=== PATIENT | female | born 1985 | race Caucasian/White ===

== ENCOUNTER 2021-06-05 18:03 | Emergency (ER) | payer MEDICAID, SELFPAY ==
--- NOTE | ~2021-06-05 | US_ITS ---
EXAMINATION: US VENOUS ULTRASOUND WITH DOPPLER LOWER EXTREMITY, LEFT CLINICAL INFORMATION: Pain COMPARISON: None TECHNIQUE: Ultrasound of the deep veins is performed from the hip to the calf with compression sonography and color and pulse Doppler assessment. Spectral analysis with color-flow imaging is performed. FINDINGS: There is normal venous compression and respiratory variation and augmented flow. The visualized common femoral vein, superficial femoral vein, profunda femoral vein, popliteal vein, and the trifurcation region shows no evidence of deep venous thrombosis. There is no significant popliteal fossa cyst. If the patient's symptoms persist, followup ultrasound in 5 days 7 days might be of value to exclude proximal propagation from a non-visualized calf vein. US/US venous duplex LE LT IMPRESSION: No DVT demonstrated in the left lower extremity.
--- NOTE | ~2021-06-05 | XR_ITS ---
EXAMINATION: XR CHEST CLINICAL INFORMATION: Cough. Mucous. COMPARISON: None TECHNIQUE: Frontal view of the chest was obtained. 8:33 PM FINDINGS: No significant abnormality is noted involving the heart, lungs, mediastinum, bony thorax or soft tissues. XR/XR chest 1V IMPRESSION: Unremarkable examination.
[2021-06-05 20:07] VITALS: BP 140/51; PULSE 70; RESP 16; TEMP 36.6; O2SAT 96; BMI 33.0
--- NOTE | 2021-06-05 20:21 | ED.GENADULT ---
HPI - General Adult General Chief complaint: General Medical Stated complaint: cough Time Seen by Provider: 06/05/21 19:48 Source: patient Mode of arrival: ambulatory Limitations: no limitations History of Present Illness HPI narrative: 35-year-old female with no primary care provider presents for 1 month of a cough. Cough is dry. No fevers, no sore throat, no runny nose, no chest pain. Patient also has had swelling in her bilateral feet, and redness and warmth on her left lower legs that she attributes to mosquito bites. States her left lower leg has been swollen and warm for the last 2 weeks. Patient has tried to establish with a primary care provider but reports that appointments keep getting canceled so she has given up. She does have a history of depression and has a psychiatrist who prescribes psych meds. Related Data Allergies Allergy/AdvReac Type Severity Reaction Status Date / Time prednisone [Prednisone] AdvReac Mild NAUSEA AND Unverified 06/05/20 16:52 VOMITING Review of Systems Review of Systems: Constitutional : No Weight loss, No Fever, No Chills, No Night Sweats,No Fatigue, No Malaise ENT/Mouth : No Hearing loss, No Ear Pain, No Nasal Congestion, NoSinus Pain, No Hoarseness, No sore throat, No Rhinorrhea, NoSwallowing Difficulty Eyes: No Eye Pain, No Swelling, No Redness, No Foreign Body, NoDischarge, No Vision Changes Cardiovascular : No Chest Pain, No SOB, No Dyspnea on Exertion, NoOrthopnea, No Edema, No Palpitations Respiratory :Dry Cough, No Sputum, No Wheezing, No Dyspnea Gastrointestinal : No Nausea, No Vomiting, No Diarrhea, NoConstipation, No abdominal Pain, No Hematochezia, No Melena Genitourinary : no irregular bleeding, No Dysuria, No UrinaryFrequency, No Hematuria, No Urinary Incontinence, No Urgency, No FlankPain, No Urinary Flow Changes, No Hesitancy Musculoskeletal : No joint pain, No Myalgias, No Joint Swelling Skin : left calf redness and swelling Neuro : No Weakness, No Numbness, No Paresthesias, No Loss ofConsciousness, No Dizziness, No Headache Psych : mild anxiety PMFSH Social History Social History Advance Directives: No Advance Directives Information Provided: No Patient : No Physical Exam Vital Signs: Vital Signs: Last Vital Signs Temp 97.9 F 06/05/21 20:07 Pulse 70 06/05/21 20:07 Resp 16 06/05/21 20:07 BP 140/51 H 06/05/21 20:07 Pulse Ox 96 06/05/21 20:07 Body Mass Index 33.0 Const: General: cooperative, no acute distress, well developed, alert and awake Nutritional Appearance: well nourished Orientation/consciousness: patient oriented x3 Limitations: no limitations HENMT: Head: Yes normal to inspection, Yes normocephalic and Yes atraumatic Ears: hearing grossly normal bilaterally, external ears normal, TM's normal bilaterally and EAC's normal General nose exam: Normal external nose present Face and sinus: Yes normal facial exam and Yes sinuses nontender Mouth: Normal oral and palatal mucosa present Throat: Yes posterior oropharynx normal Eyes: Conjunctivae: conjunctivae normal Pupils: Equal, round and reactive pupils present EOM: EOMs intact bilaterally Neck: Neck: Yes full ROM, Yes no lymphadenopathy and Yes supple Resp: Effort & Inspection: normal respiratory effort and able to speak in complete sentences Auscultation: crackles diffuse, no rales, rhonchi throughout and no wheezes Cardio: Rate: regular rate Rhythm: regular rhythm Heart sounds: S1 normal heart sound present and S2 normal heart sound present GI: Inspection: Yes normal to inspection Palpation (GI): Soft to palpation, nontender, no guarding and not rigid Percussion: Yes normal to percussion Auscultation: normal bowel sounds Skin: Other: Red swollen warm left medial distal calf. Mosquito bites or other bug bites on bilateral calf. Neuro: General: patient oriented x3, tone normal and moves all extremities Cranial nerves: Yes Equal, round and reactive pupils present Extrem: Other: Bilateral extremities have +1 pitting edema, left calf is mildly larger in circumference than right. General: Yes full ROM and Yes capillary refill normal Psych: Appearance: grossly normal Affect: normal affect Attitude: cooperative Thought process: Normal thought process present Course Course Course Narrative: 35-year-old female with 1 month of a dry cough and swelling in her feet, complaining of redness and warmth in her left lower extremity. On exam, patient is rhonchorous with crackles throughout her lung oliveira. Left lower extremity has redness and warmth on the medial aspect of her distal calf. Both lower extremities have mild edema and multiple insect bites. Patient's abdomen is soft nontender. Will give albuterol, test for COVID. Will get chest x-ray, ultrasound left lower extremity. Will get coags and blood work. If patient does not have DVT, will send home with doxycycline as that will treat both cellulitis and the pneumonia if her chest x-ray shows pneumonia. Reevaluation(s) Reevaluation #1: Chest x-ray is negative, patient is COVID negative. CBC and CMP are unremarkable. Coags normal. Signed pt out to Eneida Fatima, pending results of US of left LE. Medical Decision Making Lab Data Result diagrams: 06/05/21 20:36 06/05/21 20:36 Labs: Lab Results 06/05/21 06/05/21 06/05/21 Range/Units 20:31 20:36 20:36 WBC 7.1 (4.8-10.8) X10*3/uL RBC 4.40 (4.20-5.50) X10*6/uL Hgb 12.0 (12.0-16.0) g/dl Hct 35.8 L (37-47) % MCV 81.4 (80-98) fL MCH 27.3 (27.0-33.0) pg MCHC 33.5 (31.0-35.0) g/dl RDW 13.2 (11.0-16.0) % Plt Count 265 (160-400) X10*3/uL MPV 10.0 (9.4-12.3) fL Immature Gran % (Auto) 0.1 (0.0-0.4) % Neut % (Auto) 53.4 (45-73) % Lymph % (Auto) 37.1 (20-40) % Grainger % (Auto) 6.2 (2-11) % Eos % (Auto) 3.1 (0-4) % Baso % (Auto) 0.1 (0-2) % Lymph # (Auto) 2.7 (1.2-4.9) X10*3/uL Grainger # (Auto) 0.4 (0.1-1.2) X10*3/uL Eos # (Auto) 0.2 (0.0-0.4) X10*3/uL Baso # (Auto) 0.0 (0.0-0.2) X10*3/uL Abs Immat Gran (auto) 0.01 (0.00-0.03) X10*3/uL Absolute Neuts (auto) 3.8 (2.0-8.3) X10*3/uL Absolute Nucleated RBC 0.000 (0.0-0.012) X10*3/uL Nucleated RBC % (auto) 0.0 (0.0-0.2) /100WBC PT 12.1 (9.9-13.0) SEC INR 1.1 (0.9-1.1) APTT 37.0 (24.1-38.0) SEC Sodium (135-145) mmol/L Potassium (3.3-5.1) mmol/L Chloride (96-108) mmol/L Carbon Dioxide (22-29) mmol/L Anion Gap (12-20) BUN (9-16) mg/dL Creatinine (0.5-1.4) mg/dL Estim Creat Clear Calc Estimated GFR Random Glucose (60-115) mg/dL Calcium (8.4-10.2) mg/dL Total Bilirubin (0.0-1.0) mg/dL AST (5-31) U/L ALT (0-31) U/L Alkaline Phosphatase (39-117) U/L Total Protein (6.5-8.0) g/dL Albumin (3.5-5.0) g/dL COVID-19 (SUSAN) Negative (Negative) COVID-19 Clin Com See Note 06/05/21 Range/Units 20:36 WBC (4.8-10.8) X10*3/uL RBC (4.20-5.50) X10*6/uL Hgb (12.0-16.0) g/dl Hct (37-47) % MCV (80-98) fL MCH (27.0-33.0) pg MCHC (31.0-35.0) g/dl RDW (11.0-16.0) % Plt Count (160-400) X10*3/uL MPV (9.4-12.3) fL Immature Gran % (Auto) (0.0-0.4) % Neut % (Auto) (45-73) % Lymph % (Auto) (20-40) % Grainger % (Auto) (2-11) % Eos % (Auto) (0-4) % Baso % (Auto) (0-2) % Lymph # (Auto) (1.2-4.9) X10*3/uL Grainger # (Auto) (0.1-1.2) X10*3/uL Eos # (Auto) (0.0-0.4) X10*3/uL Baso # (Auto) (0.0-0.2) X10*3/uL Abs Immat Gran (auto) (0.00-0.03) X10*3/uL Absolute Neuts (auto) (2.0-8.3) X10*3/uL Absolute Nucleated RBC (0.0-0.012) X10*3/uL Nucleated RBC % (auto) (0.0-0.2) /100WBC PT (9.9-13.0) SEC INR (0.9-1.1) APTT (24.1-38.0) SEC Sodium 138 (135-145) mmol/L Potassium 3.9 (3.3-5.1) mmol/L Chloride 103 (96-108) mmol/L Carbon Dioxide 27 (22-29) mmol/L Anion Gap 12 (12-20) BUN 14 (9-16) mg/dL Creatinine 0.83 (0.5-1.4) mg/dL Estim Creat Clear Calc 92.0 Estimated GFR > 60 Random Glucose 85 (60-115) mg/dL Calcium 9.4 (8.4-10.2) mg/dL Total Bilirubin 0.5 (0.0-1.0) mg/dL AST 8 (5-31) U/L ALT 11 (0-31) U/L Alkaline Phosphatase 115 (39-117) U/L Total Protein 6.7 (6.5-8.0) g/dL Albumin 4.1 (3.5-5.0) g/dL COVID-19 (SUSAN) (Negative) COVID-19 Clin Com Discharge Plan Discharge Clinical Impression: Cellulitis Qualifiers: Site of cellulitis: extremity Site of cellulitis of extremity: lower extremity Laterality: left Qualified Code(s): L03.116 - Cellulitis of left lower limb
[2021-06-05 20:46] LABS: Basophils Percent Auto 0.1 % (0-2); Eosinophils Absolute Auto 0.2 X10*3/uL (0.0-0.4); Eosinophils Percent Auto 3.1 % (0-4); Hematocrit 35.8 % (37-47); Imm Gran Abs Auto 0.01 X10*3/uL (0.00-0.03); Imm Gran Pct Auto 0.1 % (0.0-0.4); Lymphocytes Absolute Auto 2.7 X10*3/uL (1.2-4.9); Lymphocytes Percent Auto 37.1 % (20-40); MANUAL DIFF FLAG NO; Mean Corpuscular HGB Conc 33.5 g/dl (31.0-35.0); Mean Corpuscular Hemoglobin 27.3 pg (27.0-33.0); Mean Corpuscular Volume 81.4 fL (80-98); Monocytes Absolute Auto 0.4 X10*3/uL (0.1-1.2); Monocytes Percent Auto 6.2 % (2-11); Neutrophils Absolute Auto 3.8 X10*3/uL (2.0-8.3); Neutrophils Percent Auto 53.4 % (45-73); Platelet Count 265 X10*3/uL (160-400); Red Cell Distribution Width 13.2 % (11.0-16.0); White Blood Count 7.1 X10*3/uL (4.8-10.8)
[2021-06-05 20:52] LABS: INTERNATIONAL NORM RATIO 1.1 (0.9-1.1); Prothrombin Time 12.1 SEC (9.9-13.0)
[2021-06-05 20:58] LABS: COVID-19 Test Negative (Negative)
[2021-06-05 21:03] LABS: Alanine Aminotransferase 11 U/L (0-31); Albumin Level 4.1 g/dL (3.5-5.0); Alkaline Phosphatase 115 U/L (39-117); Anion Gap 12 (12-20); Aspartate Amino Transferase 8 U/L (5-31); Bilirubin Total 0.5 mg/dL (0.0-1.0); Blood Urea Nitrogen 14 mg/dL (9-16); Calcium 9.4 mg/dL (8.4-10.2); Carbon Dioxide 27 mmol/L (22-29); Chloride 103 mmol/L (96-108); Estimated Glomerular Filt Rate > 60; Glucose Random 85 mg/dL (60-115); Potassium 3.9 mmol/L (3.3-5.1); Sodium 138 mmol/L (135-145); Total Protein 6.7 g/dL (6.5-8.0)
[2021-06-05] MEDS: Albuterol Sulfate 90 MCG 8 GM INHALER 2 PUFF INHALE (21:38)
[2021-06-08 17:22] LABS: Lyme Abs Screen <0.90 index
== END 2021-06-05 22:34 | disposition home or self-care (01) ==
PROVIDERS: Physician Assistant; Emergency Provider Emergency Medicine
DX: L03.116 Cellulitis of left lower limb (principal); R05 Cough; R60.0 Localized edema; Z20.822 Contact with and (suspected) exposure to COVID-19; Z79.899 Other long term (current) drug therapy
CPT/HCPCS: 36415; 71045; 80053; 85025; 85610; 85730; 86617; 86618; 87635; 93971; 99283; 99284

== ENCOUNTER 2021-11-05 12:32 | Emergency (ER) | payer MEDICAID, SELFPAY ==
[2021-11-05] VITALS (9 sets, daily range): BP systolic 73–114; BP diastolic 30–61; PULSE 41–61; RESP 16–18; TEMP 36.6; O2SAT 97–98
[2021-11-05 13:18] LABS: MANUAL DIFF FLAG NO
[2021-11-05 13:20] LABS: Basophils Percent Auto 0.4 % (0-2); Eosinophils Absolute Auto 0.4 X10*3/uL (0.0-0.4); Eosinophils Percent Auto 6.1 % (0-4); Hematocrit 39.7 % (37.0-47.0); Hemoglobin 12.8 g/dl (12.0-16.0); Imm Gran Abs Auto 0.01 X10*3/uL (0.00-0.03); Imm Gran Pct Auto 0.1 % (0.0-0.4); Lymphocytes Absolute Auto 2.7 X10*3/uL (1.2-4.9); Lymphocytes Percent Auto 38.2 % (20-40); Mean Corpuscular HGB Conc 32.2 g/dl (31.0-35.0); Mean Corpuscular Hemoglobin 27.2 pg (27.0-33.0); Mean Corpuscular Volume 84.5 fL (80.0-98.0); Mean Platelet Volume 10.7 fL (9.4-12.3); Monocytes Absolute Auto 0.4 X10*3/uL (0.1-1.2); Monocytes Percent Auto 5.2 % (2-11); Neutrophils Absolute Auto 3.5 x10*3/uL (2.0-8.3); Platelet Count 236 X10*3/uL (160-400); Red Cell Distribution Width 15.4 % (11.0-16.0); White Blood Count 7.1 X10*3/uL (4.8-10.8)
[2021-11-05 13:32] LABS: Anion Gap 13 (12-20); Blood Urea Nitrogen 14 mg/dL (9-16); Calcium 9.5 mg/dL (8.4-10.2); Carbon Dioxide 25 mmol/L (22-29); Chloride 102 mmol/L (96-108); Estimated Glomerular Filt Rate 46; Glucose Random 133 mg/dL (60-115); Potassium 5.1 mmol/L (3.3-5.1); Sodium 135 mmol/L (135-145)
[2021-11-05 13:39] LABS: HCG Quantitative < 2 mIU/mL
--- NOTE | 2021-11-05 15:00 | ED.GENADULT ---
HPI - General Adult General Chief complaint: General Medical Stated complaint: Dizzy Time Seen by Provider: 11/05/21 14:59 Source: patient Mode of arrival: ambulatory Limitations: no limitations History of Present Illness HPI narrative: 36-year-old female no significant medical history presents to the emergency department with dizziness x1 week and requesting an STD check. Patient tells me that dizziness has been intermittent in nature, worse with positional changes, she tells me it is very bad when she sits up quickly. She describes it as feeling like the room is spinning and like she is underwater. She tells she would like to get tested for gonorrhea and chlamydia as her significant other who she is currently sexually active with without protection tested positive for both of these. She would like prophylaxis treatment. She tells me she is having no symptoms. She denies chest pain, shortness of breath, fevers, chills, nausea, vomiting, urinary frequency/urgency, dysuria, vaginal discharge, pain with intercourse, vision changes, trauma to the head, headache Onset (ago): week(s) (1) Radiation: non-radiation Severity: moderate Pain Consistency: constant Relieving factors: none Exacerbating factors: none Associated symptoms: denies other symptoms Treatments prior to arrival: none Related Data Previous Rx's Medication Instructions Recorded albuterol sulfate 90 mcg/actuation 1 inh INHALATION QID PRN #6.7 g 06/05/21 aerosol inhaler cephalexin 750 mg capsule (Keflex) 750 mg PO Q12H #20 cap 06/05/21 sulfamethoxazole 800 1 tab PO Q12H #14 tab 06/05/21 mg-trimethoprim 160 mg tablet (Bactrim DS) cephalexin 500 mg capsule 500 mg PO BID #14 cap 06/07/21 doxycycline hyclate 100 mg capsule 100 mg PO BID 7 Days #14 cap 11/05/21 meclizine 25 mg tablet 25 mg PO DAILY PRN #14 tab 11/05/21 metronidazole 500 mg tablet 500 mg PO BID 7 Days #14 tab 11/05/21 Allergies Allergy/AdvReac Type Severity Reaction Status Date / Time prednisone [Prednisone] AdvReac Mild NAUSEA AND Unverified 06/05/20 16:52 VOMITING Review of Systems Review of Systems: Constitutional : No Weight loss, No Fever, No Chills, No Fatigue, No Malaise ENT/Mouth : No sore throat, No Rhinorrhea Eyes: No Eye Pain, No Swelling, No Redness Cardiovascular : No Chest Pain, No SOB, No Dyspnea on Exertion, No Orthopnea, No Edema, No Palpitations Respiratory : No Cough, No Sputum, No Wheezing Gastrointestinal : No Nausea, No Vomiting, No Diarrhea, No Constipation, No abdominal Pain, No Hematochezia, No Melena Genitourinary : No Dysuria, No Urinary Frequency, No Hematuria, Musculoskeletal : No joint pain, No Myalgias, No Joint Swelling Skin : No Skin Lesions, No rash Neuro : No Weakness, No Numbness, + Dizziness, No Headache All other systems reviewed and are negative Yes all other systems are reviewed and are negative [facility] Past Medical History Attestation statement: The following information was validated with the patient. Source: old records reviewed and nursing notes reviewed Medical History Anxiety Kidney calculi Migraine Social History Social History Patient Tobacco Use Status: Never used Tobacco Use of substances other than those prescribed or required for medical reasons: Yes Substance Use Type: Marijuana Substance Use Frequency: Occasionally Advance Directives: No Advance Directives Information Provided: Yes Physical Exam ED Vital Signs: Vital Signs - 24 hr 11/05/21 12:53 11/05/21 14:34 11/05/21 15:33 Temperature 97.9 F Pulse Rate 54 50 42 L Respiratory Rate 16 18 Blood Pressure 73/36 L 93/42 L 110/30 L Pulse Oximetry 98 97 11/05/21 15:34 11/05/21 15:36 11/05/21 18:22 Temperature Pulse Rate 41 L 61 41 L Respiratory Rate Blood Pressure 109/50 L 85/45 L 114/56 L Pulse Oximetry 11/05/21 18:23 11/05/21 18:25 Temperature Pulse Rate 42 L 42 L Respiratory Rate Blood Pressure 89/38 L 112/61 Pulse Oximetry BMI result Body Mass Index 0.0 Patient noted to be hypotensive. Orthostatic vital signs positive. Appearance: Alert.? Oriented X3.? No acute distress.? Head: Normocephalic, atraumatic, no step-offs or deformities Eyes: Pupils equal, round and reactive to light.? No nystagmus. ENT: Pharynx normal.? Neck: Normal inspection.? Neck supple.? No meningeal signs negative Kernig and Brudzinski CVS: Normal heart rate and rhythm.? Pulses normal.? Respiratory: No respiratory distress.? Breath sounds normal.? Abdomen: Soft and nontender.? Skin: Skin warm and dry.? Normal skin color.? Normal skin turgor.? Extremities: No lower extremity edema.? No calf ttp. 5/5 strength to bilateral upper and lower extremities Back: No midline tenderness, no C-spine tenderness, full range of motion, no CVA tenderness bilaterally Neuro: Oriented X 3.? No motor deficit.? No sensory deficit. Normal [id number], [id number], normal tandem gait. Course Reevaluation(s) Reevaluation #1: CBC within normal limits. No acute electrolyte abnormalities. COVID negative. Beta hCG negative. UA without infection. Patient's tox screen positive for opiates, fentanyl, benzodiazepines, cocaine, marijuana. Patient denies drug use to me. Offered her help/rehab tells me she would not like any. Time: 16:16 Reevaluation #2: Was reported to me by the nurse the patient appears like she is dozing off. It appears as though patient is positive for opiates, fentanyl, cocaine and marijuana. Patient tells me she did not take any of these. She tells me she probably tested positive for benzodiazepines since she takes these prescribed, she tells me she is not abusing them. Patient is telling me that she really wants to get out here, she tells me she had Hast ago. I explained to her that I think she would benefit from a few L of fluid, and monitoring to ensure she does not feel worse. I also told her that if she does not improve with fluids we may order a CT scan of the head, she tells me that she does not want this, and she wants to leave. I told her that that is okay if she leaves however, it would be against medical advice I went over all the risks with her including , decreased quality of life, worsening symptoms, rapid disease progression and she tells me she does not care and she needs to leave. Time: 17:29 Reevaluation #3: Patient is still feeling well, heart rate remains low. Patient is telling me despite all the risks of leaving such as decreased quality of life, progression of disease course patient would like to leave. I made it very clear to her that this can be dangerous in life-threatening. Patient wants to leave she wants to smoke and she wants to get out of here. I have advised patient she can return at any time. Tells me she will follow up with PCP. Time: 18:31 Medical Decision Making [facility] [place] Narrative Medical decision making narrative: 1520 36 yo f no pmhx presents with vertigo like sx and std check, requesting prophylaxis treatment Physical examination benign. Patient's history and physical exam consistent with orthostatic hypotension and vertigo. Unlikely that this is a posterior stroke, cerebellar function intact. No meningeal signs. Plan at this time is to obtain basic labs, EKG, chlamydia, gonorrhea, cardiac monitoring. Patient will be prophylactically treated with Rocephin 500 mg IM once and doxycycline p.o. b.i.d. x7 days as well as metronidazole 500 mg p.o. b.i.d. x7 days to cover for Trichomonas and bacterial vaginosis. Patient also be hydrated with fluids and will be given meclizine, orthostatic vital signs were positive initially they will be repeated at a later time. Medical Records Medical records reviewed: Yes I reviewed the patient's medical records. Lab Data Lab results reviewed: Yes I reviewed the patient's lab results. Result diagrams: 11/05/21 13:12 11/05/21 13:12 Labs: Lab Results 11/05/21 11/05/21 11/05/21 Range/Units 13:12 13:12 13:12 WBC 7.1 (4.8-10.8) X10*3/uL RBC 4.70 (4.20-5.50) X10*6/uL Hgb 12.8 (12.0-16.0) g/dl Hct 39.7 (37.0-47.0) % MCV 84.5 (80.0-98.0) fL MCH 27.2 (27.0-33.0) pg MCHC 32.2 (31.0-35.0) g/dl RDW 15.4 (11.0-16.0) % Plt Count 236 (160-400) X10*3/uL MPV 10.7 (9.4-12.3) fL Immature Gran % (Auto) 0.1 (0.0-0.4) % Neut % (Auto) 50.0 (45-73) % Lymph % (Auto) 38.2 (20-40) % [place] % (Auto) 5.2 (2-11) % Eos % (Auto) 6.1 H (0-4) % Baso % (Auto) 0.4 (0-2) % Lymph # (Auto) 2.7 (1.2-4.9) X10*3/uL [place] # (Auto) 0.4 (0.1-1.2) X10*3/uL Eos # (Auto) 0.4 (0.0-0.4) X10*3/uL Baso # (Auto) 0.0 (0.0-0.2) X10*3/uL Abs Immat Gran (auto) 0.01 (0.00-0.03) X10*3/uL Absolute Neuts (auto) 3.5 (2.0-8.3) x10*3/uL Absolute Nucleated RBC 0.000 (0.0-0.012) X10*3/uL Nucleated RBC % (auto) 0.0 (0.0-0.2) /100WBC Sodium 135 (135-145) mmol/L Potassium 5.1 D (3.3-5.1) mmol/L Chloride 102 (96-108) mmol/L Carbon Dioxide 25 (22-29) mmol/L Anion Gap 13 (12-20) BUN 14 (9-16) mg/dL Creatinine 1.33 (0.5-1.4) mg/dL Estim Creat Clear Calc TNP Estimated GFR 46 Random Glucose 133 H (60-115) mg/dL Calcium 9.5 (8.4-10.2) mg/dL Beta HCG, Quant < 2 mIU/mL Urine Color Urine Appearance Urine pH (5.0-8.0) Ur Specific Valdez (1.005-1.025) Urine Protein (NEG-TRACE) MG/DL Urine Glucose (UA) (NEG) MG/DL Urine Ketones (NEG) MG/DL Urine Blood (NEG) Urine Nitrite (NEG) Ur Leukocyte Esterase (NEG) Urine RBC (0) /HPF Urine WBC (0-4) /HPF Ur Squamous Epith Cells /LPF Urine Bacteria /LPF Urine Opiates Screen (Not Detect) Urine Fentanyl Screen (Not Detect) Ur Barbiturates Screen (Not Detect) Ur Phencyclidine Scrn (Not Detect) Ur Amphetamines Screen (Not Detect) U Benzodiazepines Scrn (Not Detect) Urine Cocaine Screen (Not Detect) U Marijuana (THC) Screen (Not Detect) Chlam trachomat DNA PCR Cancelled COVID-19 (SUSAN) (Negative) COVID-19 Clin Com N.gonorrhoeae DNA (PCR) Cancelled 11/05/21 11/05/21 11/05/21 Range/Units 15:43 15:43 15:43 WBC (4.8-10.8) X10*3/uL RBC (4.20-5.50) X10*6/uL Hgb (12.0-16.0) g/dl Hct (37.0-47.0) % MCV (80.0-98.0) fL MCH (27.0-33.0) pg MCHC (31.0-35.0) g/dl RDW (11.0-16.0) % Plt Count (160-400) X10*3/uL MPV (9.4-12.3) fL Immature Gran % (Auto) (0.0-0.4) % Neut % (Auto) (45-73) % Lymph % (Auto) (20-40) % [place] % (Auto) (2-11) % Eos % (Auto) (0-4) % Baso % (Auto) (0-2) % Lymph # (Auto) (1.2-4.9) X10*3/uL [place] # (Auto) (0.1-1.2) X10*3/uL Eos # (Auto) (0.0-0.4) X10*3/uL Baso # (Auto) (0.0-0.2) X10*3/uL Abs Immat Gran (auto) (0.00-0.03) X10*3/uL Absolute Neuts (auto) (2.0-8.3) x10*3/uL Absolute Nucleated RBC (0.0-0.012) X10*3/uL Nucleated RBC % (auto) (0.0-0.2) /100WBC Sodium (135-145) mmol/L Potassium (3.3-5.1) mmol/L Chloride (96-108) mmol/L Carbon Dioxide (22-29) mmol/L Anion Gap (12-20) BUN (9-16) mg/dL Creatinine (0.5-1.4) mg/dL Estim Creat Clear Calc Estimated GFR Random Glucose (60-115) mg/dL Calcium (8.4-10.2) mg/dL Beta HCG, Quant mIU/mL Urine Color YELLOW Urine Appearance CLOUDY Urine pH 5.5 (5.0-8.0) Ur Specific Valdez >= 1.030 H (1.005-1.025) Urine Protein 1+ H (NEG-TRACE) MG/DL Urine Glucose (UA) NEG (NEG) MG/DL Urine Ketones 15 (NEG) MG/DL Urine Blood NEG (NEG) Urine Nitrite NEG (NEG) Ur Leukocyte Esterase TRACE H (NEG) Urine RBC 0 (0) /HPF Urine WBC 1-4 (0-4) /HPF Ur Squamous Epith Cells 4+ /LPF Urine Bacteria 2+ /LPF Urine Opiates Screen POSITIVE H (Not Detect) Urine Fentanyl Screen POSITIVE H (Not Detect) Ur Barbiturates Screen Not Detected (Not Detect) Ur Phencyclidine Scrn Not Detected (Not Detect) Ur Amphetamines Screen Not Detected (Not Detect) U Benzodiazepines Scrn POSITIVE H (Not Detect) Urine Cocaine Screen POSITIVE H (Not Detect) U Marijuana (THC) Screen POSITIVE H (Not Detect) Chlam trachomat DNA PCR COVID-19 (SUSAN) Negative (Negative) COVID-19 Clin Com See Note N.gonorrhoeae DNA (PCR) Critical Care Time Critical Care Time Critical Care Time: No Discharge Plan Discharge Clinical Impression: Dizziness, Exposure to STD Patient Disposition: Left Against Medical Advice Additional Instructions: Take your medications as prescribed. If you were prescribed antibiotics today, it is important that you take your medication to their entirety, do not skip any doses, do not finish them early. Follow-up with your primary care provider this week. Return to the emergency department with new or worsening symptoms. In case of emergency call 911 Doxycycline and antibiotic has been sent to her pharmacy this covers for chlamydia. The injection you received here in the emergency department covers for gonorrhea. I will also send metronidazole which will cover for Trichomonas. We chose to treat prophylactically and use split decision making. Please complete these antibiotics, and please use condoms in the meantime until this course of antibiotics is complete. Or please practice abstinence. Please follow-up with your PCP or a local clinic [facility] for full panel [facility]D testing. You decided to leave against medical advice, this means that your condition can quickly worsened, potential risks include decreased quality of life, , worsening symptoms. Please come back to the emergency department with new or worsening symptoms, we are open at any time and I feel as though you should return to be re-evaluated if you change your mind Prescriptions: New doxycycline hyclate 100 mg capsule 100 mg PO BID 7 Days Qty: 14 0RF metronidazole 500 mg tablet 500 mg PO BID 7 Days Qty: 14 0RF meclizine 25 mg tablet 25 mg PO DAILY PRN (Reason: dizziness) Qty: 14 0RF No Action sulfamethoxazole-trimethoprim [Bactrim DS] 800-160 mg tablet 1 tab PO Q12H Qty: 14 0RF cephalexin [Keflex] 750 mg capsule 750 mg PO Q12H Qty: 20 0RF albuterol sulfate 90 mcg/actuation HFA aerosol inhaler 1 inh inhalation QID PRN (Reason: shortness of breath or wheezing) Qty: 6.7 0RF cephalexin 500 mg capsule 500 mg PO BID Qty: 14 0RF Referrals: Physician,None [Primary Care Provider] - 2 days Stand Alone Forms: Work/School Release, Against Medical Advice
--- NOTE | 2021-11-05 15:02 | ECG_ITS ---
Test Reason : dizziness Blood Pressure : / mmHG Vent. Rate : 048 BPM Atrial Rate : 048 BPM P-R Int : 124 ms QRS Dur : 078 ms QT Int : 510 ms P-R-T Axes : 018 040 024 degrees QTc Int : 455 ms Sinus bradycardia Otherwise normal ECG No previous ECGs available Referred By: Isis Justice Electronically Signed By:MAK DONALD MD
[2021-11-05] MEDS: 0.9 % Sodium Chloride 1,000 ML 999 ML IV (15:48)
--- NOTE | 2021-11-05 15:50 | PC.NURSE ---
pt alert and oriented, skin pwd, respirations even and unlabored. pt reports feeling dizzy x1 week, she feels unstable on her feet, like she is in a tunnel, blocked ear, things appear brighter in vision, no spots/blurry vision pt appears slightly sluggish with her speech, pt reports feeling tired not sleeping well, hr in the 40's also boyfriend positive for stds
[2021-11-05 16:01] LABS: Appearance Urine CLOUDY; Color Urine YELLOW; Glucose Urine UA NEG (NEG); Leukocyte Esterase Urine TRACE (NEG); Nitrite Urine NEG (NEG); PH 5.5 (5.0-8.0); Specific Gravity - Urine >= 1.030 (1.005-1.025); UACC Culture Trigger YES; Urine Blood NEG (NEG); Urine Ketones 15 MG/DL (NEG); Urine Protein 1+ MG/DL (NEG-TRACE)
[2021-11-05] MEDS: Meclizine HCl 25 MG TABLET PO (16:05)
[2021-11-05] MEDS: cefTRIAXone sodium 500 MG, Lidocaine HCl 1 % MPF 1 ML IM (16:05)
[2021-11-05 16:06] LABS: Amphetamine Screen Urine Not Detected (Not Detect); Barbiturates, Urine Not Detected (Not Detect); Benzodiazepines Screen Urine POSITIVE (Not Detect); Cannabinoid Screen Urine POSITIVE (Not Detect); Cocaine Screen Urine POSITIVE (Not Detect); Fentanyl, urine POSITIVE (Not Detect); Opiate Screen Urine POSITIVE (Not Detect); Phencyclidine Screen Urine Not Detected (Not Detect)
[2021-11-05 16:08] LABS: Bacteria Urine 2+ /LPF; RBC Urine 0 /HPF (0); Squamous Epithelial Cell Urine 4+ /LPF
[2021-11-05 16:15] LABS: COVID-19 Test Negative (Negative)
== END 2021-11-05 19:05 | disposition left against medical advice (07) ==
PROVIDERS: Physician Assistant; Emergency Provider Emergency Medicine
DX: R42 Dizziness and giddiness (principal); R51.9 Headache, unspecified; F12.90 Cannabis use, unspecified, uncomplicated; Z20.822 Contact with and (suspected) exposure to COVID-19; Z79.899 Other long term (current) drug therapy
CPT/HCPCS: 36415; 80048; 80307; 81001; 81003; 84702; 85025; 87086; 87635; 93005; 96360; 96361; 96372; 99284; 99285; J0696

== ENCOUNTER 2022-01-22 18:56 | Emergency (ER) | payer MEDICAID, SELFPAY ==
[2022-01-22 20:06] VITALS: BP 105/64; PULSE 74; RESP 18; TEMP 35.7; O2SAT 98; BMI 31.5
[2022-01-22 20:48] LABS: Appearance Urine CLEAR; Color Urine YELLOW; Glucose Urine UA NEG (NEG); Leukocyte Esterase Urine NEG (NEG); Nitrite Urine NEG (NEG); Urine Blood NEG (NEG); Urine Ketones NEG (NEG); Urine Protein TRACE MG/DL (NEG-TRACE)
[2022-01-22 20:49] LABS: UPreg QC Valid YES; Urine Pregnancy POSITIVE (NEGATIVE)
--- NOTE | 2022-01-22 22:24 | ED_ITS ---
HPI - Female Genitourinary General Chief complaint: Urogenital-Female Stated complaint: STD check Time Seen by Provider: 01/22/22 19:57 Related Data Previous Rx's Medication Instructions Recorded albuterol sulfate 90 mcg/actuation 1 inh INHALATION QID PRN #6.7 g 06/05/21 aerosol inhaler cephalexin 750 mg capsule (Keflex) 750 mg PO Q12H #20 cap 06/05/21 sulfamethoxazole 800 1 tab PO Q12H #14 tab 06/05/21 mg-trimethoprim 160 mg tablet (Bactrim DS) cephalexin 500 mg capsule 500 mg PO BID #14 cap 06/07/21 doxycycline hyclate 100 mg capsule 100 mg PO BID 7 Days #14 cap 11/05/21 meclizine 25 mg tablet 25 mg PO DAILY PRN #14 tab 11/05/21 metronidazole 500 mg tablet 500 mg PO BID 7 Days #14 tab 11/05/21 Allergies Allergy/AdvReac Type Severity Reaction Status Date / Time prednisone [Prednisone] AdvReac Mild NAUSEA AND Verified 01/22/22 20:09 VOMITING PMFSH Past Medical History Medical History Anxiety Kidney calculi Migraine Social History Social History Patient Tobacco Use Status: Never used Tobacco Substance Use Type: Marijuana Advance Directives: No Advance Directives Information Provided: Yes Physical Exam Vital Signs: Vital Signs: Last Vital Signs Temp 96.3 F L 01/22/22 20:06 Pulse 74 01/22/22 20:06 Resp 18 01/22/22 20:06 BP 105/64 01/22/22 20:06 Pulse Ox 98 01/22/22 20:06 BMI result Body Mass Index 31.5 Course Course Course Narrative: 36-year-old female who presented to emergency department for evaluation of possible STD. The patient did have a positive urine test . The patient had waited approximately 3-1/2 hours prior to being seen and nursing staff asked me to evaluate the patient when I went back to the room, the patient had left without being seen. The patient was also here with her boyfriend and he had a viral-like illness with a pneumonia on his chest x-ray I reach both the patient and the boyfriend and advised [facility] so that I could evaluate them and treat them however they state that they could not come back at this time and they would try to come back in the morning. MDM - Female Genitourinary Lab Data Labs: Lab Results 01/22/22 01/22/22 Range/Units 20:38 20:38 Urine Color YELLOW Urine Appearance CLEAR Urine pH 7.0 (5.0-8.0) Ur Specific [place] 1.020 (1.005-1.025) Urine Protein TRACE (NEG-TRACE) MG/DL Urine Glucose (UA) NEG (NEG) MG/DL Urine Ketones NEG (NEG) MG/DL Urine Blood NEG (NEG) Urine Nitrite NEG (NEG) Ur Leukocyte Esterase NEG (NEG) Urine Test POSITIVE H (NEGATIVE) Discharge Plan Discharge Clinical Impression: Patient left without being seen Patient Disposition: Left Without Being Seen Prescriptions: No Action sulfamethoxazole-trimethoprim [Bactrim DS] 800-160 mg tablet 1 tab PO Q12H Qty: 14 0RF cephalexin [Keflex] 750 mg capsule 750 mg PO Q12H Qty: 20 0RF albuterol sulfate 90 mcg/actuation HFA aerosol inhaler 1 inh inhalation QID PRN (Reason: shortness of breath or wheezing) Qty: 6.7 0RF cephalexin 500 mg capsule 500 mg PO BID Qty: 14 0RF doxycycline hyclate 100 mg capsule 100 mg PO BID 7 Days Qty: 14 0RF metronidazole 500 mg tablet 500 mg PO BID 7 Days Qty: 14 0RF meclizine 25 mg tablet 25 mg PO DAILY PRN (Reason: dizziness) Qty: 14 0RF Interventions: LWBS Worksheet Last Done: 01/22/22 22:25
[2022-01-23 10:36] LABS: CT PCR NOT DETECTED (Not Detect.); NG PCR NOT DETECTED (Not Detect.)
== END 2022-01-22 22:26 | disposition left against medical advice (07) ==
PROVIDERS: Physician Assistant Medical; Emergency Provider Emergency Medicine Emergency Medical Services
DX: Z32.01 Encounter for pregnancy test, result positive (principal); Z20.2 Contact with and (suspected) exposure to infections with a predominantly sexual mode of transmission; Z79.899 Other long term (current) drug therapy
CPT/HCPCS: 36415; 81003; 81025; 84702; 87491; 87591; 99283; 99284

== ENCOUNTER 2022-01-22 22:48 | Emergency (ER) | payer MEDICAID, SELFPAY ==
[2022-01-22 22:51] VITALS: BP 101/59; PULSE 73; RESP 18; TEMP 36.6; O2SAT 97; BMI 31.5
[2022-01-23 01:03] LABS: HCG Quantitative 10459 mIU/mL
--- NOTE | 2022-01-23 01:11 | ED.FEMALEGU ---
HPI - Female Genitourinary General Chief complaint: Urogenital-Female Stated complaint: STD Check Time Seen by Provider: 01/22/22 23:59 Related Data Previous Rx's Medication Instructions Recorded albuterol sulfate 90 mcg/actuation 1 inh INHALATION QID PRN #6.7 g 06/05/21 aerosol inhaler cephalexin 750 mg capsule (Keflex) 750 mg PO Q12H #20 cap 06/05/21 sulfamethoxazole 800 1 tab PO Q12H #14 tab 06/05/21 mg-trimethoprim 160 mg tablet (Bactrim DS) cephalexin 500 mg capsule 500 mg PO BID #14 cap 06/07/21 doxycycline hyclate 100 mg capsule 100 mg PO BID 7 Days #14 cap 11/05/21 meclizine 25 mg tablet 25 mg PO DAILY PRN #14 tab 11/05/21 metronidazole 500 mg tablet 500 mg PO BID 7 Days #14 tab 11/05/21 Allergies Allergy/AdvReac Type Severity Reaction Status Date / Time prednisone [Prednisone] AdvReac Mild NAUSEA AND Verified 01/22/22 22:54 VOMITING PMFSH Past Medical History Medical History Anxiety Kidney calculi Migraine Social History Social History Patient Tobacco Use Status: Never used Tobacco Substance Use Type: Marijuana Advance Directives: No Advance Directives Information Provided: Yes Patient : Yes Physical Exam Vital Signs: Vital Signs: Last Vital Signs Temp 97.8 F 01/22/22 22:51 Pulse 73 01/22/22 22:51 Resp 18 01/22/22 22:51 BP 101/59 L 01/22/22 22:51 Pulse Ox 97 01/22/22 22:51 BMI result Body Mass Index 31.5 MDM - Female Genitourinary Lab Data Labs: Lab Results 01/23/22 Range/Units 00:35 Beta HCG, Quant 49591 mIU/mL Discharge Plan Discharge Clinical Impression: , Concern about STD in female without diagnosis Patient Disposition: Home, Self-Care Instructions: (ED) Additional Instructions: Your tested for gonorrhea and chlamydia, these tests will not come back today. You can follow-up with our sleeping car service attendant or your doctor to get these results. Your urine test was positive Your blood test (quantitative beta-hCG) was positive the number was [phone]. Based on your last menstrual period of 11/19/2021 you would be approximately 9 weeks and 1 day . If you want to continue with this you should follow-up with our on-call sleeping car service attendant, Dr. Tolentino. Call his office to schedule an appointment. If you want to terminate this [facility] Follow-up with your doctor in 2 days. Please return to the emergency department if your symptoms get worse or if you develop any symptoms that are concerning to you. Prescriptions: No Action sulfamethoxazole-trimethoprim [Bactrim DS] 800-160 mg tablet 1 tab PO Q12H Qty: 14 0RF cephalexin [Keflex] 750 mg capsule 750 mg PO Q12H Qty: 20 0RF albuterol sulfate 90 mcg/actuation HFA aerosol inhaler 1 inh inhalation QID PRN (Reason: shortness of breath or wheezing) Qty: 6.7 0RF cephalexin 500 mg capsule 500 mg PO BID Qty: 14 0RF doxycycline hyclate 100 mg capsule 100 mg PO BID 7 Days Qty: 14 0RF metronidazole 500 mg tablet 500 mg PO BID 7 Days Qty: 14 0RF meclizine 25 mg tablet 25 mg PO DAILY PRN (Reason: dizziness) Qty: 14 0RF Referrals: Jacob Tolentino MD [Physician] - 2 weeks
== END 2022-01-23 01:31 | disposition home or self-care (01) ==
PROVIDERS: Emergency Provider Emergency Medicine Emergency Medical Services
DX: O26.90 Pregnancy related conditions, unspecified, unspecified trimester (principal); Z3A.00 Weeks of gestation of pregnancy not specified; Z20.2 Contact with and (suspected) exposure to infections with a predominantly sexual mode of transmission
CPT/HCPCS: 36415; 84702; 99283; 99284

== ENCOUNTER 2022-03-15 20:36 | Emergency (ER) | payer MEDICAID, SELFPAY ==
--- NOTE | ~2022-03-15 | US_ITS ---
EXAMINATION: ULTRASOUND CLINICAL INFORMATION: with abdominal pain. A very limited exam performed to confirm viability and obtain dates. anatomy was not interrogated. COMPARISON: None TECHNIQUE: Transabdominal and endovaginal FINDINGS: Single fetus is present with a crown-rump length 6.4 cm corresponding to a gestational age of 12 weeks 6 days and LACEY of 09/21/2022. Normal heart rate of 155 bpm was noted. Amniotic fluid volume appeared normal. The placenta was located anteriorly. US/US OB limited IMPRESSION: Single fetus with normal heartbeat with gestational age best estimated at 12 weeks 6 days with an LACEY of 09/21/2022.
[2022-03-15 20:50] VITALS: BP 150/90; PULSE 103; RESP 15; TEMP 36.9; O2SAT 97; BMI 33.7
[2022-03-15 21:46] LABS: Appearance Urine CLEAR; Color Urine YELLOW; Glucose Urine UA NEG (NEG); Leukocyte Esterase Urine TRACE (NEG); Nitrite Urine NEG (NEG); Specific Gravity - Urine 1.015 (1.005-1.025); Urine Blood NEG (NEG); Urine Ketones NEG (NEG); Urine Protein NEG (NEG-TRACE)
--- NOTE | 2022-03-15 21:56 | ED.FEMALEGU ---
HPI - Female Genitourinary General Chief complaint: Urogenital-Female Stated complaint: prolapsed bladder, about 4 months preg Time Seen by Provider: 03/15/22 21:56 Source: patient Mode of arrival: ambulatory Limitations: no limitations History of Present Illness HPI Narrative: 36 year old A2 presents to the emergency department with complaints of severe abdominal pain to her lower abdomen, lower extremity pain and swelling x2 days. Patient tells me that she is she does not know how far along which she is guessing she is about 4 months . She has not followed by an OBGYN. Patient tells me that she is having lower abdominal pain that does not radiate, she tells me the pain is severe, 06/28, she tells me sometimes when she has severe pain she has episodes of urinary incontinence. She tells me she feels like her bladder is ?leaking ?. She also tells me that yesterday she had normal lower extremities however today she woke up with severe swelling to bilateral lower extremities and difficulty moving them. She tells me this is never happened to her before. She denies any past medical history however she does tell me she has had an STD in the past unsure which one. She denies vaginal bleeding, chest pain, shortness of breath, nausea, vomiting, fevers, chills, headache, dizziness, vision changes. Patient tells me that she has intermittent bladder prolapse is, this has been going on for years. Related Data Previous Rx's Medication Instructions Recorded albuterol sulfate 90 mcg/actuation 1 inh inhalation QID PRN shortness 06/05/21 aerosol inhaler of breath or wheezing #6.7 grams cephalexin 750 mg capsule (Keflex) 750 mg PO Q12H #20 caps 06/05/21 sulfamethoxazole 800 1 tab PO Q12H #14 tabs 06/05/21 mg-trimethoprim 160 mg tablet (Bactrim DS) cephalexin 500 mg capsule 500 mg PO BID #14 caps 06/07/21 doxycycline hyclate 100 mg capsule 100 mg PO BID 7 days #14 caps 11/05/21 meclizine 25 mg tablet 25 mg PO DAILY PRN dizziness #14 11/05/21 tabs metronidazole 500 mg tablet 500 mg PO BID 7 days #14 tabs 11/05/21 vit no.95-ferrous 1 tab PO DAILY #30 tabs 03/16/22 fumarate 28 mg-folic acid 800 mcg tablet () Allergies Allergy/AdvReac Type Severity Reaction Status Date / Time prednisone [Prednisone] AdvReac Mild NAUSEA AND Verified 01/22/22 22:54 VOMITING Review of Systems Review of Systems: Constitutional : No Weight loss, No Fever, No Chills, No Fatigue, No Malaise ENT/Mouth : No sore throat, No Rhinorrhea Eyes: No Eye Pain, No Swelling, No Redness Cardiovascular : No Chest Pain, No SOB, No Dyspnea on Exertion, No Orthopnea, + Edema, No Palpitations Respiratory : No Cough, No Sputum, No Wheezing Gastrointestinal : No Nausea, No Vomiting, No Diarrhea, No Constipation, + abdominal Pain, No Hematochezia, No Melena Genitourinary : No Dysuria, No Urinary Frequency, No Hematuria, Musculoskeletal : No joint pain, No Myalgias, No Joint Swelling Skin : No Skin Lesions, No rash Neuro : No Weakness, No Numbness, No Dizziness, No Headache Psych : No Anxiety/Panic, No Depression All other systems reviewed and are negative Yes all other systems are reviewed and are negative [facility] Past Medical History Attestation statement: The following information was validated with the patient. Source: old records reviewed and nursing notes reviewed Medical History Anxiety Kidney calculi Migraine Social History Social History Patient Tobacco Use Status: Never used Tobacco Substance Use Type: Marijuana Advance Directives: No Physical Exam Vital Signs: Vital Signs: Last Vital Signs Temp 98.9 F 03/16/22 00:54 Pulse 76 03/16/22 00:54 Resp 16 03/16/22 00:54 BP 120/76 03/16/22 00:54 Pulse Ox 98 03/16/22 00:54 O2 Del Method 03/16/22 00:54 BMI result Body Mass Index 33.7 VSS Appearance: Alert.? Oriented X3.? No acute distress.? Head: Normocephalic, atraumatic, no step-offs or deformities Eyes: Pupils equal, round and reactive to light.? ENT: Pharynx normal.? Neck: Normal inspection.? Neck supple.? CVS: Normal heart rate and rhythm.? Pulses normal.? Respiratory: No respiratory distress.? Breath sounds normal.? Abdomen: Soft and + diffusely tender and distended.? Skin: Skin warm and dry.? Normal skin color.? Normal skin turgor.? Extremities: 4+ nonpitting edema from hip down b/l.? No calf ttp. 5/5 strength to bilateral upper and lower extremities Sensative: no blood noted internally, no pain, external genitalia normal, no bladder prolapse noted. Back: No midline tenderness, no C-spine tenderness, full range of motion, no CVA tenderness bilaterally Neuro: Oriented X 3.? No motor deficit.? No sensory deficit. CN 2-12 intact Course Reevaluation(s) Reevaluation #1: Ambulaitng w/ steady gait unlikley this is a MS or transveres mylitis. No back pain or midline tenderness, unlikley cauda equina or epidural abcess. CBC with a slight normocytic anemia likely secondary to . Chemistry with no acute electrolyte abnormalities requiring intervention. Beta hCG positive and up trending. Urine clean without infection. Ultrasound of the abdomen/Ob with a single fetus with normal heartbeat with gestational age best estimate around 12 weeks 6 days with an estimated delivery date of 09/21/2022. Patient reports significant improvement in abdominal pain and discomfort, a lower extremity edema has improved after urine drainage, at this time she has drained about 2500. 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 She is seeking help. And would like to speak to somebody about detox. Time: 00:46 Reevaluation #2: Upon re-evaluation no tenderness to palpation of abdomen. Patient appears much better. Reports improvement. She will be sent home with a leg bag, [place] text to Dr. Zacarias who agrees to seeing a patient in the office. Discuss this case to an extent with my Attending Dr. Mccarthy who recommends urology follow up outpatient and obgyn follow up. Time: 01:14 MDM - Female Genitourinary MDM Narrative Medical decision making narrative: [id number] 36-year-old female A2 currently thought to be around 4 months without care presenting to the emergency department with complaints of severe lower abdominal pain, leaking bladder, swelling of bilateral lower extremities x2 days. Physical examination significant for distended diffusely tender abdomen, normoactive bowel sounds, 4+ nonpitting edema to bilateral lower extremities. Regular rate and rhythm. Lungs clear. Abdomen soft nontender nondistended. Neuro exam nonfocal. Immediately upon patient's arrival a bedside ultrasound was obtained however unable to visualize IUP due to distended bladder, a bladder scan was immediately ordered and it showed >999ml in her bladder. For that reason a Rodriguez catheter was immediately placed, patient drained around 2000 cc immediately of dark yellow urine without sediment, patient reports immediate relief. Plan at this time is a ultrasound, basic labs, Rodriguez, urine. Medical Records Attestation: I reviewed the patient's medical records. Lab Data Attestation: I reviewed the patient's lab results. Result diagrams: 03/15/22 22:41 03/15/22 22:42 Labs: Lab Results 03/15/22 03/15/22 03/15/22 Range/Units 21:07 22:41 22:41 WBC 8.5 (4.8-10.8) X10*3/uL RBC 3.84 L (4.20-5.50) X10*6/uL Hgb 10.7 L (12.0-16.0) g/dl Hct 31.7 L D (37.0-47.0) % MCV 82.6 (80.0-98.0) fL MCH 27.9 (27.0-33.0) pg MCHC 33.8 (31.0-35.0) g/dl RDW 13.0 (11.0-16.0) % Plt Count 173 D (160-400) X10*3/uL MPV 9.6 (9.4-12.3) fL Immature Gran % (Auto) 0.1 (0.0-0.4) % Neut % (Auto) 78.5 H (45-73) % Lymph % (Auto) 18.7 L (20-40) % [place] % (Auto) 2.6 (2-11) % Eos % (Auto) 0.0 (0-4) % Baso % (Auto) 0.1 (0-2) % Lymph # (Auto) 1.6 (1.2-4.9) X10*3/uL [place] # (Auto) 0.2 (0.1-1.2) X10*3/uL Eos # (Auto) 0.0 (0.0-0.4) X10*3/uL Baso # (Auto) 0.0 (0.0-0.2) X10*3/uL Abs Immat Gran (auto) 0.01 (0.00-0.03) X10*3/uL Absolute Neuts (auto) 6.6 (2.0-8.3) x10*3/uL Absolute Nucleated RBC 0.000 (0.0-0.012) X10*3/uL Nucleated RBC % (auto) 0.0 (0.0-0.2) /100WBC Sodium (135-145) mmol/L Potassium (3.3-5.1) mmol/L Chloride (96-108) mmol/L Carbon Dioxide (22-29) mmol/L Anion Gap (12-20) BUN (9-16) mg/dL Creatinine (0.5-1.4) mg/dL Estim Creat Clear Calc Estimated GFR Random Glucose (60-115) mg/dL Calcium (8.4-10.2) mg/dL Total Bilirubin (0.0-1.0) mg/dL AST (5-31) U/L ALT (0-31) U/L Alkaline Phosphatase (39-117) U/L B-Natriuretic Peptide 36 (<100) pg/mL Total Protein (6.5-8.0) g/dL Albumin (3.5-5.0) g/dL Lipase (8-78) U/L Beta HCG, Quant mIU/mL Urine Color YELLOW Urine Appearance CLEAR Urine pH 7.0 (5.0-8.0) Ur Specific [place] 1.015 (1.005-1.025) Urine Protein NEG (NEG-TRACE) MG/DL Urine Glucose (UA) NEG (NEG) MG/DL Urine Ketones NEG (NEG) MG/DL Urine Blood NEG (NEG) Urine Nitrite NEG (NEG) Ur Leukocyte Esterase TRACE H (NEG) Urine RBC 1-4 (0) /HPF Urine WBC 5-9 H (0-4) /HPF Ur Squamous Epith Cells 1+ /LPF Urine Bacteria 3+ /LPF 03/15/22 Range/Units 22:42 WBC (4.8-10.8) X10*3/uL RBC (4.20-5.50) X10*6/uL Hgb (12.0-16.0) g/dl Hct (37.0-47.0) % MCV (80.0-98.0) fL MCH (27.0-33.0) pg MCHC (31.0-35.0) g/dl RDW (11.0-16.0) % Plt Count (160-400) X10*3/uL MPV (9.4-12.3) fL Immature Gran % (Auto) (0.0-0.4) % Neut % (Auto) (45-73) % Lymph % (Auto) (20-40) % [place] % (Auto) (2-11) % Eos % (Auto) (0-4) % Baso % (Auto) (0-2) % Lymph # (Auto) (1.2-4.9) X10*3/uL [place] # (Auto) (0.1-1.2) X10*3/uL Eos # (Auto) (0.0-0.4) X10*3/uL Baso # (Auto) (0.0-0.2) X10*3/uL Abs Immat Gran (auto) (0.00-0.03) X10*3/uL Absolute Neuts (auto) (2.0-8.3) x10*3/uL Absolute Nucleated RBC (0.0-0.012) X10*3/uL Nucleated RBC % (auto) (0.0-0.2) /100WBC Sodium 136 (135-145) mmol/L Potassium 4.3 (3.3-5.1) mmol/L Chloride 103 (96-108) mmol/L Carbon Dioxide 26 (22-29) mmol/L Anion Gap 11 L (12-20) BUN 12 (9-16) mg/dL Creatinine 0.72 (0.5-1.4) mg/dL Estim Creat Clear Calc 102.0 Estimated GFR > 60 Random Glucose 115 (60-115) mg/dL Calcium 9.7 (8.4-10.2) mg/dL Total Bilirubin 0.4 (0.0-1.0) mg/dL AST 9 (5-31) U/L ALT 14 (0-31) U/L Alkaline Phosphatase 77 D (39-117) U/L B-Natriuretic Peptide (<100) pg/mL Total Protein 6.5 (6.5-8.0) g/dL Albumin 3.8 (3.5-5.0) g/dL Lipase 9 (8-78) U/L Beta HCG, Quant 56794 mIU/mL Urine Color Urine Appearance Urine pH (5.0-8.0) Ur Specific [place] (1.005-1.025) Urine Protein (NEG-TRACE) MG/DL Urine Glucose (UA) (NEG) MG/DL Urine Ketones (NEG) MG/DL Urine Blood (NEG) Urine Nitrite (NEG) Ur Leukocyte Esterase (NEG) Urine RBC (0) /HPF Urine WBC (0-4) /HPF Ur Squamous Epith Cells /LPF Urine Bacteria /LPF Critical Care Time Critical Care Time Critical Care Time: No Discharge Plan Discharge Clinical Impression: , Abdominal pain, Overflow incontinence, Acute urinary retention Patient Disposition: Home, Self-Care Instructions: Rodriguez Catheter Placement and Care (ED), Abdominal Pain (ED), at 11 to 14 Weeks (ED) Additional Instructions: Take your medications as prescribed. If you were prescribed antibiotics today, it is important that you take your medication to their entirety, do not skip any doses, do not finish them early. Follow-up with your primary care provider this week. Return to the emergency department with new or worsening symptoms. Such as fevers, chills, chest pain, shortness of breath, nausea, vomiting, dizziness, headache, vision changes, lethargy, vaginal bleeding, severe abdominal pain In case of emergency call 911 You need to follow-up with urology and OBGYN as soon as possible. Numbers are listed below. I gave you [facility] number and Detox information please call for help with methadone or suboxone Please start taking pre vitamins - sent to your pharmacy Please care for your rodriguez as educated US/US OB limited IMPRESSION: Single fetus with normal heartbeat with gestational age best estimated at 12 weeks 6 days with an LACEY of 09/21/2022. Prescriptions: New PNV cmb#95-ferrous fumarate-FA [] 28 mg iron- 800 mcg tablet 1 tab PO DAILY Qty: 30 0RF No Action sulfamethoxazole-trimethoprim [Bactrim DS] 800-160 mg tablet 1 tab PO Q12H Qty: 14 0RF cephalexin [Keflex] 750 mg capsule 750 mg PO Q12H Qty: 20 0RF albuterol sulfate 90 mcg/actuation HFA aerosol inhaler 1 inh inhalation QID PRN (Reason: shortness of breath or wheezing) Qty: 6.7 0RF cephalexin 500 mg capsule 500 mg PO BID Qty: 14 0RF doxycycline hyclate 100 mg capsule 100 mg PO BID 7 Days Qty: 14 0RF metronidazole 500 mg tablet 500 mg PO BID 7 Days Qty: 14 0RF meclizine 25 mg tablet 25 mg PO DAILY PRN (Reason: dizziness) Qty: 14 0RF Referrals: Johny Zacarias MD [Physician] - 1 day Physician,None [Primary Care Provider] - 2 days Jacob Toletnino MD [Physician] - 1 day Stand Alone Forms: Work/School Release
[2022-03-15 21:57] LABS: Bacteria Urine 3+ /LPF; Squamous Epithelial Cell Urine 1+ /LPF
[2022-03-15 22:48] LABS: MANUAL DIFF FLAG NO
[2022-03-15 22:49] LABS: Basophils Percent Auto 0.1 % (0-2); Hematocrit 31.7 % (37.0-47.0); Hemoglobin 10.7 g/dl (12.0-16.0); Imm Gran Abs Auto 0.01 X10*3/uL (0.00-0.03); Imm Gran Pct Auto 0.1 % (0.0-0.4); Lymphocytes Absolute Auto 1.6 X10*3/uL (1.2-4.9); Lymphocytes Percent Auto 18.7 % (20-40); Mean Corpuscular HGB Conc 33.8 g/dl (31.0-35.0); Mean Corpuscular Hemoglobin 27.9 pg (27.0-33.0); Mean Corpuscular Volume 82.6 fL (80.0-98.0); Mean Platelet Volume 9.6 fL (9.4-12.3); Monocytes Absolute Auto 0.2 X10*3/uL (0.1-1.2); Monocytes Percent Auto 2.6 % (2-11); Neutrophils Absolute Auto 6.6 x10*3/uL (2.0-8.3); Neutrophils Percent Auto 78.5 % (45-73); Platelet Count 173 X10*3/uL (160-400); Red Blood Count 3.84 X10*6/uL (4.20-5.50); White Blood Count 8.5 X10*3/uL (4.8-10.8)
[2022-03-15 23:05] LABS: Alanine Aminotransferase 14 U/L (0-31); Albumin Level 3.8 g/dL (3.5-5.0); Alkaline Phosphatase 77 U/L (39-117); Anion Gap 11 (12-20); Aspartate Amino Transferase 9 U/L (5-31); Bilirubin Total 0.4 mg/dL (0.0-1.0); Blood Urea Nitrogen 12 mg/dL (9-16); Calcium 9.7 mg/dL (8.4-10.2); Carbon Dioxide 26 mmol/L (22-29); Chloride 103 mmol/L (96-108); Estimated Glomerular Filt Rate > 60; Glucose Random 115 mg/dL (60-115); Lipase 9 U/L (8-78); Potassium 4.3 mmol/L (3.3-5.1); Sodium 136 mmol/L (135-145); Total Protein 6.5 g/dL (6.5-8.0)
[2022-03-15 23:12] LABS: B Type Natriuretic Peptide 36 pg/mL (<100)
[2022-03-15 23:41] LABS: HCG Quantitative 30045 mIU/mL
[2022-03-16 00:54] VITALS: BP 120/76; PULSE 76; RESP 16; TEMP 37.2; O2SAT 98
[2022-03-16 01:28] LABS: Fentanyl, urine POSITIVE (Not Detect)
[2022-03-16 01:29] LABS: Amphetamine Screen Urine Not Detected (Not Detect); Barbiturates, Urine Not Detected (Not Detect); Cannabinoid Screen Urine POSITIVE (Not Detect); Cocaine Screen Urine Not Detected (Not Detect); Opiate Screen Urine POSITIVE (Not Detect); Phencyclidine Screen Urine Not Detected (Not Detect)
--- NOTE | 2022-03-16 02:18 | PC.NURSE ---
I assumed nursing care of Lesli upon her arrival to bed 19. Prior to meeting and assessing her PA Abi and PA student evaluated the pt and placed a Valverde catheter on the pt. I was not present for this. The pt since then has complained of extreme discomfort/ pain from the catheter with any movement of the tubing or any time she moves/walks. She has remained alert, oriented x 3, calm and cooperative, family at the bedside. No chest pain. NO SOB. I was asked to discharge the pt with a leg bag. When I entered the room to do this the pt was tearful, insisting that she was not able to be discharged with a catheter due to the pain she experiences with it. I spoke with her at length about the need for the catheter and the risks associated with not leaving with the catheter in place to the best of my abilities. I then encouraged the pt to speak to the TREY Alex before she made a final deicision about the catheter. Abi spoke with the pt and the pt informed me that she basically told me I had no choice and berated me . I apologized to the pt. She agreed to try the leg bag. I placed the leg bag and gave adequate education about how to care for it and change it and connect it. She was tearful throughout and decided not to leave with the catheter. I removed the Valverde catheter by deflating the balloon. The pt was then D/C'd. She insisted that she will call Dr. Villela first thing in the morning in an attempt to follow up. She also insisted that she would return for any concerns. She ambulated out of the ED independently and with steady gait.
[2022-03-17 07:01] LABS: Benzodiazepines Screen Urine POSITIVE (Not Detect)
== END 2022-03-16 02:41 | disposition home or self-care (01) ==
PROVIDERS: Internal Medicine; Physician Assistant; Emergency Provider Emergency Medicine
DX: O26.92 Pregnancy related conditions, unspecified, second trimester (principal); R33.9 Retention of urine, unspecified; Z3A.16 16 weeks gestation of pregnancy; Z79.899 Other long term (current) drug therapy
CPT/HCPCS: 36415; 76815; 80053; 80307; 81001; 83690; 83880; 84702; 85025; 99284

== ENCOUNTER 2022-03-17 01:53 | Emergency (ER) | payer MEDICAID, SELFPAY ==
[2022-03-17 05:07] LABS: Appearance Urine CLEAR; Color Urine YELLOW; Glucose Urine UA NEG (NEG); Leukocyte Esterase Urine NEG (NEG); Nitrite Urine POS (NEG); PH 6.5 (5.0-8.0); UACC Culture Trigger YES; Urine Blood TRACE (NEG); Urine Ketones NEG (NEG); Urine Protein NEG (NEG-TRACE)
[2022-03-17 06:02] LABS: Bacteria Urine 4+ /LPF; Squamous Epithelial Cell Urine 1+ /LPF
== END 2022-03-17 05:40 | disposition home or self-care (01) ==
PROVIDERS: Emergency Provider Emergency Medicine
DX: N39.0 Urinary tract infection, site not specified (principal); B95.61 Methicillin susceptible Staphylococcus aureus infection as the cause of diseases classified elsewhere; B95.1 Streptococcus, group B, as the cause of diseases classified elsewhere; F12.90 Cannabis use, unspecified, uncomplicated
CPT/HCPCS: 51702; 81001; 87086; 87088; 87147; 87186; 99284

== ENCOUNTER 2022-03-25 21:24 | Emergency (ER) | payer MEDICAID, SELFPAY ==
[2022-03-25 21:32] VITALS: BP 105/60; PULSE 82; RESP 18; TEMP 36.8; O2SAT 97; BMI 33.2
[2022-03-25 21:45] LABS: MANUAL DIFF FLAG NO
[2022-03-25 21:49] LABS: Basophils Percent Auto 0.3 % (0-2); Eosinophils Absolute Auto 0.2 X10*3/uL (0.0-0.4); Eosinophils Percent Auto 2.9 % (0-4); Hemoglobin 11.6 g/dl (12.0-16.0); Imm Gran Abs Auto 0.02 X10*3/uL (0.00-0.03); Imm Gran Pct Auto 0.3 % (0.0-0.4); Lymphocytes Absolute Auto 2.7 X10*3/uL (1.2-4.9); Lymphocytes Percent Auto 36.2 % (20-40); Mean Corpuscular HGB Conc 34.1 g/dl (31.0-35.0); Mean Corpuscular Volume 81.9 fL (80.0-98.0); Mean Platelet Volume 9.6 fL (9.4-12.3); Monocytes Absolute Auto 0.4 X10*3/uL (0.1-1.2); Monocytes Percent Auto 5.7 % (2-11); Neutrophils Absolute Auto 4.1 x10*3/uL (2.0-8.3); Neutrophils Percent Auto 54.6 % (45-73); Platelet Count 223 X10*3/uL (160-400); Red Blood Count 4.15 X10*6/uL (4.20-5.50); Red Cell Distribution Width 13.6 % (11.0-16.0); White Blood Count 7.6 X10*3/uL (4.8-10.8)
[2022-03-25 22:03] LABS: Anion Gap 11 (12-20); Blood Urea Nitrogen 12 mg/dL (9-16); Calcium 9.2 mg/dL (8.4-10.2); Carbon Dioxide 24 mmol/L (22-29); Chloride 106 mmol/L (96-108); Creatinine Clr Calc Pharmacy 108.5; Estimated Glomerular Filt Rate > 60; Glucose Random 97 mg/dL (60-115); Potassium 3.8 mmol/L (3.3-5.1); Sodium 137 mmol/L (135-145)
--- NOTE | 2022-03-25 23:36 | ED_ITS ---
HPI - Female Genitourinary General Chief complaint: Urogenital-Female Stated complaint: catheter pain/problems urinating Time Seen by Provider: 03/25/22 23:36 Source: patient Mode of arrival: ambulatory Limitations: no limitations History of Present Illness HPI Narrative: Patient is 13 weeks IVDA user was seen here 03/15 at urinary retention Valverde catheter was placed comes here for Valverde catheter removal and has some vaginal discharge which is whitish would like to take the medicine for yeast infection patient was treated with Macrobid for UTI no fever no nausea no vomiting Related Data Previous Rx's Medication Instructions Recorded albuterol sulfate 90 mcg/actuation 1 inh inhalation QID PRN shortness 06/05/21 aerosol inhaler of breath or wheezing #6.7 grams cephalexin 750 mg capsule (Keflex) 750 mg PO Q12H #20 caps 06/05/21 sulfamethoxazole 800 1 tab PO Q12H #14 tabs 06/05/21 mg-trimethoprim 160 mg tablet (Bactrim DS) cephalexin 500 mg capsule 500 mg PO BID #14 caps 06/07/21 doxycycline hyclate 100 mg capsule 100 mg PO BID 7 days #14 caps 11/05/21 meclizine 25 mg tablet 25 mg PO DAILY PRN dizziness #14 11/05/21 tabs metronidazole 500 mg tablet 500 mg PO BID 7 days #14 tabs 11/05/21 vit no.95-ferrous 1 tab PO DAILY #30 tabs 03/16/22 fumarate 28 mg-folic acid 800 mcg tablet () nitrofurantoin 100 mg PO Q12H 7 days #14 caps 03/17/22 monohydrate/macrocrystals 100 mg capsule (Macrobid) cephalexin 500 mg capsule 500 mg PO QID 7 days #28 caps 03/26/22 miconazole nitrate 2 % vaginal 1 appful vaginal BEDTIME 7 days 03/26/22 cream (Miconazole-7) #45 grams Allergies Allergy/AdvReac Type Severity Reaction Status Date / Time prednisone [Prednisone] AdvReac Mild NAUSEA AND Verified 03/25/22 21:36 VOMITING PMFSH Past Medical History Medical History Anxiety Kidney calculi Migraine Social History Social History Alcohol intake: never Patient Tobacco Use Status: Never used Tobacco Substance Use Type: Marijuana Advance Directives: No Advance Directives Information Provided: Yes Physical Exam Vital Signs: Vital Signs: Last Vital Signs Temp 98.2 F 03/25/22 21:32 Pulse 70 03/26/22 00:58 Resp 16 03/26/22 00:58 BP 95/47 L 03/26/22 00:58 Pulse Ox 97 03/26/22 00:58 O2 Del Method 03/26/22 00:58 BMI result Body Mass Index 33.2 Appearance: Alert. Oriented X3. No acute distress. ENT: Pharynx normal. Oral Mucosa moist Neck: Normal inspection. Neck supple. CVS: Normal heart rate and rhythm. Pulses normal. Respiratory: No respiratory distress. Equal air entry bilateral, no wheezing/rales/rhonchi Abdomen: Soft and nontender. Bowel sounds are present, no mass palpable, no CVA tenderness Skin: Skin warm and dry. Normal skin color. Normal skin turgor. Extremities: No lower extremity edema. No calf tenderness Neuro: Oriented X 3. MDM - Female Genitourinary MDM Narrative Medical decision making narrative: Patient's legs UTI discharge patient home on cephalexin as in the previous culture urine grew Staph aureus and strep agalactiae sensitive to cephalexin Lab Data Attestation: I reviewed the patient's lab results. Result diagrams: 03/25/22 21:40 03/25/22 21:40 Labs: Lab Results 03/25/22 03/25/22 03/26/22 Range/Units 21:40 21:40 00:07 WBC 7.6 (4.8-10.8) X10*3/uL RBC 4.15 L (4.20-5.50) X10*6/uL Hgb 11.6 L (12.0-16.0) g/dl Hct 34.0 L (37.0-47.0) % MCV 81.9 (80.0-98.0) fL MCH 28.0 (27.0-33.0) pg MCHC 34.1 (31.0-35.0) g/dl RDW 13.6 (11.0-16.0) % Plt Count 223 D (160-400) X10*3/uL MPV 9.6 (9.4-12.3) fL Immature Gran % (Auto) 0.3 (0.0-0.4) % Neut % (Auto) 54.6 (45-73) % Lymph % (Auto) 36.2 (20-40) % [place] % (Auto) 5.7 (2-11) % Eos % (Auto) 2.9 (0-4) % Baso % (Auto) 0.3 (0-2) % Lymph # (Auto) 2.7 (1.2-4.9) X10*3/uL [place] # (Auto) 0.4 (0.1-1.2) X10*3/uL Eos # (Auto) 0.2 (0.0-0.4) X10*3/uL Baso # (Auto) 0.0 (0.0-0.2) X10*3/uL Abs Immat Gran (auto) 0.02 (0.00-0.03) X10*3/uL Absolute Neuts (auto) 4.1 (2.0-8.3) x10*3/uL Absolute Nucleated RBC 0.000 (0.0-0.012) X10*3/uL Nucleated RBC % (auto) 0.0 (0.0-0.2) /100WBC Sodium 137 (135-145) mmol/L Potassium 3.8 (3.3-5.1) mmol/L Chloride 106 (96-108) mmol/L Carbon Dioxide 24 (22-29) mmol/L Anion Gap 11 L (12-20) BUN 12 (9-16) mg/dL Creatinine 0.67 (0.5-1.4) mg/dL Estim Creat Clear Calc 108.5 Estimated GFR > 60 Random Glucose 97 (60-115) mg/dL Calcium 9.2 (8.4-10.2) mg/dL Urine Color BROWN A Urine Appearance TURBID Urine pH 6.0 (5.0-8.0) Ur Specific [place] >= 1.030 H (1.005-1.025) Urine Protein 3+ H (NEG-TRACE) MG/DL Urine Glucose (UA) NEG (NEG) MG/DL Urine Ketones 5 (NEG) MG/DL Urine Blood 3+ H (NEG) Urine Nitrite POS H (NEG) Ur Leukocyte Esterase TRACE H (NEG) Urine RBC 76-150 H (0) /HPF Urine WBC 10-14 H (0-4) /HPF Ur Squamous Epith Cells NONE /LPF Calcium Oxalate Crystal TRACE /LPF Urine Bacteria 1+ /LPF Urine Mucus 1+ /LPF Discharge Plan Discharge Clinical Impression: Urinary tract infection, Candidiasis of vagina Patient Disposition: Home, Self-Care Instructions: Yeast Infection (ED), Urinary Tract Infection in (ED) Additional Instructions: Local hygiene as advised Take antibiotic as prescribed Vaginal cream for candidiasis Drink plenty of fluid Prescriptions: New miconazole nitrate [Miconazole-7] 2 % cream 1 appful vaginal BEDTIME 7 Days Qty: 45 0RF cephalexin 500 mg capsule 500 mg PO QID 7 Days Qty: 28 0RF No Action sulfamethoxazole-trimethoprim [Bactrim DS] 800-160 mg tablet 1 tab PO Q12H Qty: 14 0RF cephalexin [Keflex] 750 mg capsule 750 mg PO Q12H Qty: 20 0RF albuterol sulfate 90 mcg/actuation HFA aerosol inhaler 1 inh inhalation QID PRN (Reason: shortness of breath or wheezing) Qty: 6.7 0RF cephalexin 500 mg capsule 500 mg PO BID Qty: 14 0RF nitrofurantoin monohyd/m-cryst [Macrobid] 100 mg capsule 100 mg PO Q12H 7 Days Qty: 14 0RF Rx Instructions: must administer with a meal/food doxycycline hyclate 100 mg capsule 100 mg PO BID 7 Days Qty: 14 0RF metronidazole 500 mg tablet 500 mg PO BID 7 Days Qty: 14 0RF meclizine 25 mg tablet 25 mg PO DAILY PRN (Reason: dizziness) Qty: 14 0RF PNV [id number]-[id number] fumarate-FA [] 28 mg iron- 800 mcg tablet 1 tab PO DAILY Qty: 30 0RF Interventions: ED Discharge Assessment Last Done: 03/26/22 01:07 Discharge Date/Time: 03/26/22 01:13
[2022-03-26 00:18] LABS: Appearance Urine TURBID; Color Urine BROWN; Glucose Urine UA NEG (NEG); Leukocyte Esterase Urine TRACE (NEG); Nitrite Urine POS (NEG); Specific Gravity - Urine >= 1.030 (1.005-1.025); UACC Culture Trigger YES; Urine Blood 3+ (NEG); Urine Ketones 5 MG/DL (NEG); Urine Protein 3+ MG/DL (NEG-TRACE)
[2022-03-26 00:30] LABS: Bacteria Urine 1+ /LPF; Calcium Oxalate Crystals Urine TRACE /LPF; Mucus Urine 1+ /LPF
[2022-03-26 00:58] VITALS: BP 95/47; PULSE 70; RESP 16; O2SAT 97
[2022-03-26] MEDS: cephALEXin 500 MG CAPSULE PO (01:01)
== END 2022-03-26 01:13 | disposition home or self-care (01) ==
PROVIDERS: Emergency Provider Internal Medicine
DX: N39.0 Urinary tract infection, site not specified (principal); B37.3 Candidiasis of vulva and vagina; Z79.899 Other long term (current) drug therapy
CPT/HCPCS: 36415; 80048; 81001; 85025; 87086; 87088; 87186; 99283

== ENCOUNTER 2022-12-07 11:37 | Emergency (ER) | payer MEDICAID, SELFPAY ==
[2022-12-07 11:53] VITALS: BP 113/86; PULSE 65; RESP 19; TEMP 36.6; O2SAT 98; BMI 31.2
--- NOTE | 2022-12-07 11:53 | ED.FEMALEGU ---
HPI - Female Genitourinary General Chief complaint: Urogenital-Female Stated complaint: yeast infection Time Seen by Provider: 12/07/22 11:53 Source: patient Mode of arrival: ambulatory Limitations: no limitations History of Present Illness HPI Narrative: 37-year-old female presents the emergency department requesting STD testing however tells me she has not been exposed, requesting prophylactic treatment however. Also tells me she has a yeast infection, she gets these often and currently has 1 reporting vaginal itching, sick white curd-like discharge times 3 days. Patient denies fevers, chills chest pain, shortness of breath, nausea, vomiting, vaginal bleeding. Related Data Previous Rx's Medication Instructions Recorded albuterol sulfate 90 mcg/actuation 1 inh inhalation QID PRN shortness 06/05/21 aerosol inhaler of breath or wheezing #6.7 grams cephalexin 750 mg capsule (Keflex) 750 mg PO Q12H #20 caps 06/05/21 sulfamethoxazole 800 1 tab PO Q12H #14 tabs 06/05/21 mg-trimethoprim 160 mg tablet (Bactrim DS) cephalexin 500 mg capsule 500 mg PO BID #14 caps 06/07/21 doxycycline hyclate 100 mg capsule 100 mg PO BID 7 days #14 caps 11/05/21 meclizine 25 mg tablet 25 mg PO DAILY PRN dizziness #14 11/05/21 tabs metronidazole 500 mg tablet 500 mg PO BID 7 days #14 tabs 11/05/21 vit no.95-ferrous 1 tab PO DAILY #30 tabs 03/16/22 fumarate 28 mg-folic acid 800 mcg tablet () nitrofurantoin 100 mg PO Q12H 7 days #14 caps 03/17/22 monohydrate/macrocrystals 100 mg capsule (Macrobid) cephalexin 500 mg capsule 500 mg PO QID 7 days #28 caps 03/26/22 miconazole nitrate 2 % vaginal 1 appful vaginal BEDTIME 7 days 03/26/22 cream (Miconazole-7) #45 grams nitrofurantoin 100 mg PO BID 7 days #14 caps 04/02/22 monohydrate/macrocrystals 100 mg capsule (Macrobid) vitamin#30 30 mg iron-10 1 cap PO DAILY #30 caps 04/02/22 mg iron-folic acid 1 mg-omg3 capsule doxycycline hyclate 100 mg capsule 100 mg PO BID 10 days #20 caps 12/07/22 fluconazole 150 mg tablet 150 mg PO Q3D 2 doses #2 tabs 12/07/22 metronidazole 500 mg tablet 500 mg PO BID 7 days #14 tabs 12/07/22 Allergies Allergy/AdvReac Type Severity Reaction Status Date / Time prednisone [Prednisone] AdvReac Mild NAUSEA AND Verified 03/25/22 21:36 VOMITING Review of Systems Review of Systems: Constitutional : No Weight loss, No Fever, No Chills, No Fatigue, No Malaise ENT/Mouth : No sore throat, No Rhinorrhea Eyes: No Eye Pain, No Swelling, No Redness Cardiovascular : No Chest Pain, No SOB, No Dyspnea on Exertion, No Orthopnea, No Edema, No Palpitations Respiratory : No Cough, No Sputum, No Wheezing Gastrointestinal : No Nausea, No Vomiting, No Diarrhea, No Constipation, No abdominal Pain, No Hematochezia, No Melena Genitourinary : No Dysuria, No Urinary Frequency, No Hematuria, + vaginal itching & discharge Musculoskeletal : No joint pain, No Myalgias, No Joint Swelling Skin : No Skin Lesions, No rash Neuro : No Weakness, No Numbness, No Dizziness, No Headache Psych : No Anxiety/Panic, No Depression All other systems reviewed and are negative Yes all other systems are reviewed and are negative [facility] Past Medical History Attestation statement: The following information was validated with the patient. Source: old records reviewed and nursing notes reviewed Medical History Anxiety Kidney calculi Migraine Social History Social History Alcohol intake: never Patient Tobacco Use Status: Never used Tobacco Substance Use Type: Marijuana Physical Exam Vital Signs: Vital Signs: Last Vital Signs Temp 98 F 12/07/22 11:53 Pulse 65 12/07/22 11:53 Resp 19 12/07/22 11:53 BP 113/86 12/07/22 11:53 Pulse Ox 98 12/07/22 11:53 O2 Del Method 12/07/22 11:53 BMI result Body Mass Index 31.2 vss Appearance: Alert.? Oriented X3.? No acute distress.? Head: Normocephalic, atraumatic, no step-offs or deformities Eyes: Pupils equal, round and reactive to light.? CVS: Normal heart rate and rhythm.? Pulses normal.? Respiratory: No respiratory distress.? Breath sounds normal.? Abdomen: Soft and nontender.? Skin: Skin warm and dry.? Normal skin color.? Normal skin turgor.? Extremities: No lower extremity edema.? No calf ttp. 5/5 strength to bilateral upper and lower extremities Neuro: Oriented X 3.? No motor deficit.? No sensory deficit. CN 2-12 intact Sensitive exam: Deferred Course Reevaluation(s) Reevaluation #1: Patient will be treated with doxycycline, metronidazole, ceftriaxone. Serology pending. Patient agrees to prophylactic treatment for gonorrhea, chlamydia and trichomonas. 500mg IM ceftriaxone has been given here and scripts for doxycycline 100 mg po BID X 7 days and metronidazole 500 mg po BID X 7 days have been given to the patient. Educated on safe sex practices, full pannel STD testing and speaking to? partners on possible STD. Educated patient on diagnosis and treatment plan, answered all question, patient verbalizes understanding. At this time patient will be discharged home, advised to return with new or worsening symptoms. Educated on worrisome signs and symptoms and when to return. At this time I feel comfortable discharge home. Time: 11:58 Medical Decision Making Medical Decision Making [facility] Narrative: 1156 37-year-old female presents requesting STD testing and treatment for yeast. Physical exam benign. Sensitive exam deferred. Concerns for STDs versus UTI versus yeast. Plan at this time testing for gonorrhea, chlamydia, urine in basic test. Differential Diagnosis Differential Diagnoses: The differential diagnosis associated with the presentation includes Concerns for STDs versus UTI versus yeast. Admission/Observation Consideration of admission/observation: Escalation of care including admission/observation considered Not indicate Core Measures AMI core measures followed: Yes Measure exclusions: not indicated Critical Care Time Critical Care Time Critical Care Time: No Discharge Plan Discharge Clinical Impression: Encounter for assessment of STD exposure, Yeast infection Patient Disposition: Home, Self-Care Instructions: Yeast Infection (ED) Additional Instructions: Take your medications as prescribed. If you were prescribed antibiotics today, it is important that you take your medication to their entirety, do not skip any doses, do not finish them early. Follow-up with your primary care provider this week. Return to the emergency department with new or worsening symptoms. Such as fevers, chills, chest pain, shortness of breath, nausea, vomiting, dizziness, headache, vision changes, lethargy In case of emergency call 911 You were treated here today with ceftriaxone, a medication that treats gonorrhea. I have sent to your pharmacy Metronidazole that covers trichomonas, and Doxycycline which covers for chlamydia. Please be reevaluated by a healthcare provider after completing your antibiotics. Do not stop them early, do not skip any doses. Until you are reevaluated by a health care provider please practice safe sex as disucussed. Please also have a conversation with your sexual partners.? I also advise you to obtain full panel STD testing to test for other STDs including HIV, Hepatitis B & C and syphilis with your PCP or a local clinic. Prescriptions: New doxycycline hyclate 100 mg capsule 100 mg PO BID 10 Days Qty: 20 0RF metronidazole 500 mg tablet 500 mg PO BID 7 Days Qty: 14 0RF fluconazole 150 mg tablet 150 mg PO Q3D Qty: 2 0RF No Action sulfamethoxazole-trimethoprim [Bactrim DS] 800-160 mg tablet 1 tab PO Q12H Qty: 14 0RF cephalexin [Keflex] 750 mg capsule 750 mg PO Q12H Qty: 20 0RF albuterol sulfate 90 mcg/actuation HFA aerosol inhaler 1 inh inhalation QID PRN (Reason: shortness of breath or wheezing) Qty: 6.7 0RF cephalexin 500 mg capsule 500 mg PO BID Qty: 14 0RF nitrofurantoin monohyd/m-cryst [Macrobid] 100 mg capsule 100 mg PO Q12H 7 Days Qty: 14 0RF Rx Instructions: must administer with a meal/food miconazole nitrate [Miconazole-7] 2 % cream 1 appful vaginal BEDTIME 7 Days Qty: 45 0RF cephalexin 500 mg capsule 500 mg PO QID 7 Days Qty: 28 0RF nitrofurantoin monohyd/m-cryst [Macrobid] 100 mg capsule 100 mg PO BID 7 Days Qty: 14 0RF Rx Instructions: must administer with a meal/food PNV #[id number] 30 mg iron-10 mg iron-1 mg capsule 1 cap PO DAILY Qty: 30 0RF doxycycline hyclate 100 mg capsule 100 mg PO BID 7 Days Qty: 14 0RF metronidazole 500 mg tablet 500 mg PO BID 7 Days Qty: 14 0RF meclizine 25 mg tablet 25 mg PO DAILY PRN (Reason: dizziness) Qty: 14 0RF PNV [id number]-ferrous fumarate-FA [] 28 mg iron- 800 mcg tablet 1 tab PO DAILY Qty: 30 0RF Referrals: Physician,None [Primary Care Provider] - 2 days
[2022-12-07 12:22] LABS: Appearance Urine Clear; Color Urine Yellow; Glucose Urine UA Negative (Negative); Leukocyte Esterase Urine Small (1+) (Negative); Nitrite Urine Negative (Negative); Specific Gravity - Urine >= 1.030 (1.005-1.025); UMIC TRIGGER UACC YES; UPreg QC Valid YES; Urine Blood Small (1+) (Negative); Urine Ketones Negative (Negative); Urine Pregnancy NEGATIVE (NEGATIVE); Urine Protein Trace mg/dL (Neg-Trace)
[2022-12-07] MEDS: Doxycycline Monohydrate 100 MG CAPSULE PO (12:24)
[2022-12-07] MEDS: cefTRIAXone sodium 500 MG, Lidocaine HCl 1 % MPF 1 ML IM (12:24)
[2022-12-07] MEDS: metroNIDAZOLE 500 MG TABLET PO (12:28)
[2022-12-07 12:32] LABS: UACC Culture Trigger YES; WBC Urine 21-50 /HPF (0-5)
[2022-12-07 12:33] LABS: Hyaline Casts Urine 0-2 /LPF (0-2)
[2022-12-07 12:34] LABS: Bacteria Urine Trace (None Seen)
[2022-12-07 13:55] LABS: CT PCR NOT DETECTED (Not Detect.); NG PCR NOT DETECTED (Not Detect.)
== END 2022-12-07 12:55 | disposition home or self-care (01) ==
PROVIDERS: Physician Assistant; Emergency Provider Emergency Medicine
DX: B37.9 Candidiasis, unspecified (principal); Z20.2 Contact with and (suspected) exposure to infections with a predominantly sexual mode of transmission; Z79.899 Other long term (current) drug therapy
CPT/HCPCS: 0353U; 81001; 81025; 87086; 87147; 96372; 99282; 99284; J0696

== ENCOUNTER 2023-01-20 23:39 | Emergency (ER) | payer MEDICAID, SELFPAY ==
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
[2023-01-20 23:40] VITALS: BP 136/84; BP 158/98; PULSE 102; PULSE 66; RESP 18; TEMP 36.9; O2SAT 98; O2SAT 99; BMI 29.2
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
[2023-01-21] MEDS: Diphth,Pertus(ACell),Tet Adult 0.5 ML SYRINGE IM (00:43)
[2023-01-21] MEDS: Acetaminophen 325 MG TABLET 650 MG PO (00:43)
--- NOTE | 2023-01-21 00:45 | MHC.EDTECH ---
pt refused labs
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
== END 2023-01-21 01:40 ==
PROVIDERS: Emergency Provider Student in an Organized Health Care Education/Training Program
DX: S06.0X0A Concussion without loss of consciousness, initial encounter (principal); S00.83XA Contusion of other part of head, initial encounter; S00.10XA Contusion of unspecified eyelid and periocular area, initial encounter; S00.81XA Abrasion of other part of head, initial encounter; V99.XXXA Unspecified transport accident, initial encounter; Y93.9 Activity, unspecified; Y92.410 Unspecified street and highway as the place of occurrence of the external cause; Y99.9 Unspecified external cause status; Z79.899 Other long term (current) drug therapy; Z23 Encounter for immunization
CPT/HCPCS: 70450; 70486; 72125; 90471; 90715; 99283; 99284